=== PATIENT | female | born 1990 | race Caucasian/White ===

== ENCOUNTER 2017-10-18 18:43 | Emergency (ER) | payer MEDICARE ==
[~2017-10-18] VITALS: Ht 160 cm; Wt 97.5 kg
[2017-10-18 19:15] VITALS: Ht 160 cm; Wt 97.5 kg
[2017-10-18] MEDS ORDERED: TIROSINT50 MCG PO (19:17)
[2017-10-18] MEDS ORDERED: NEURONTIN 400400 MG PO ×2 (19:17→22:27)
[2017-10-18] MEDS ORDERED: KEPPRA500 MG PO ×2 (19:18→22:27)
[2017-10-18] MEDS ORDERED: LAMICTAL150 MG PO ×2 (19:18→22:27)
[2017-10-18] MEDS ORDERED: LEVO-T50 MCG PO (22:27)
[2017-10-19 00:26] VITALS: BP 132/81
== END 2017-10-18 23:00 | disposition home or self-care (01) ==
LOC: D.ER 18:43
DX: Z76.0 Encounter for issue of repeat prescription (principal)

== ENCOUNTER 2019-06-24 07:41 | Emergency (ER) | payer MEDICARE ==
[~2019-06-24] VITALS: Ht 160 cm; Wt 127.3 kg
[~2019-06-24 07:41] MED LIST: KEPPRA500 MG PO; LAMICTAL150 MG PO; LEVO-T50 MCG PO; NEURONTIN 400400 MG PO; TIROSINT50 MCG PO
[2019-06-24 07:59] VITALS: Ht 160 cm; Wt 127.3 kg
[2019-06-24] MEDS ORDERED: INVEGA1.5 MG (08:14)
[2019-06-24] MEDS ORDERED: KLONOPIN0.5 MG (08:15)
[2019-06-24] MEDS ORDERED: PRAVACHOL40 MG (08:15)
[2019-06-24] MEDS ORDERED: LEXAPRO5 MG (08:15)
--- NOTE | 2019-06-24 08:30 | NUR ---
According to the suicide assessment the patient will require a 1:1 observation. Provide her a suicide resource flyer and a safety plan.
[2019-06-24 08:51] LABS: BASOPHILS 0.4 % (0-2); EOSINOPHILS 4.1 % (0-7); HEMATOCRIT 37.5 % (36.0-48.0); HEMOGLOBIN 12.7 g/dL (12-16); LYMPHOCYTES 24.1 % (15-50); MCH 32.1 pg (26.0-34.0); MCHC 33.9 g/dL (31.0-37.0); MCV 94.7 fL (80.0-100.0); MEAN PLATELET VOLUME 9.9 fL (7.4-10.4); MONOCYTES 12.6 % (2-11); NEUTROPHILS 57.8 % (40-80); PLATELET COUNT 314 10x3/uL (130-400); RBC 3.96 10x6/uL (4.00-5.40); RDW 12.7 % (11.5-14.5); WBC 7.3 10x3/uL (4.8-10.8)
[2019-06-24 08:54] LABS: BILIRUBIN NEGATIVE (NEGATIVE); GLUCOSE NEGATIVE (NEGATIVE); KETONE NEGATIVE (NEGATIVE); NITRITE NEGATIVE (NEGATIVE); UROBILINOGEN NORMAL (NORMAL)
[2019-06-24 08:59] LABS: CALC OSMOLALITY 279 mosm/kg (275-300); CALCIUM 9.1 mg/dL (8.5-10.1); CARBON DIOXIDE 25.8 mmol/L (21.0-32.0); CHLORIDE - SERUM 105 mmol/L (98-107); CREATININE - SERUM 0.8 mg/dL (0.6-1.3); GLUCOSE 88 mg/dL (74-106); SODIUM 141 mmol/L (136-145); UREA NITROGEN 13 mg/dL (7-18); eGFR NON AFRICAN AMERICAN 89 mL/min (90-120)
[2019-06-24 09:01] LABS: UDS - AMPHET NEGATIVE QUAL (NEGATIVE); UDS - BARB NEGATIVE QUAL (NEGATIVE); UDS - BENZO NEGATIVE QUAL (NEGATIVE); UDS - COCAINE NEGATIVE QUAL (NEGATIVE); UDS - OPIATE NEGATIVE QUAL (NEGATIVE); UDS - PCP NEGATIVE QUAL (NEGATIVE); UDS - THC NEGATIVE QUAL (NEGATIVE)
[2019-06-24 09:05] LABS: ALBUMIN 3.6 g/dL (3.4-5.0); ALKALINE PHOSPHATASE 62 U/L (30-120); ALT (SGPT) 32 U/L (10-68); BILIRUBIN - TOTAL 0.22 mg/dL (0.2-1.3); MAGNESIUM - SERUM 1.7 mg/dL (1.8-2.4)
[2019-06-24 09:50] LABS: HCG URINE NEGATIVE (NEGATIVE)
[2019-06-24 12:35] VITALS: BP 111/80
== END 2019-06-24 13:06 ==
LOC: D.ER 07:41
PROVIDERS: Family Medicine
DX: R45.851 Suicidal ideations (principal); R44.0 Auditory hallucinations; G40.909 Epilepsy, unspecified, not intractable, without status epilepticus; E07.9 Disorder of thyroid, unspecified; J45.909 Unspecified asthma, uncomplicated